=== PATIENT | female | born 2000 | race Two or more races ===

== ENCOUNTER 2020-07-21 16:52 | Emergency (ER) | payer MEDICAID ==
[~2020-07-21] VITALS: Ht 165.1 cm; Wt 59.0 kg
[2020-07-21] MEDS ORDERED: ONDANSETRON 4MG ODT PO ONE (19:00)
[2020-07-21] MEDS ORDERED: IBUPROFEN 600MG TABLET PO ONE (19:00)
[2020-07-21 20:23] LABS: BASOPHILS % 0.6 % (0.0-2.0); EOSINOPHILS % 0.5 % (0.0-5.0); HEMATOCRIT. 41.4 % (36.0-48.0); HEMOGLOBIN. 14.4 g/dL (12.0-16.0); LYMPHOCYTES % 37.3 % (20.0-50.0); MEAN CORPUSCULAR HEMOGLOBIN 30.5 pg (28.0-32.0); MEAN CORPUSCULAR VOLUME 87.5 fL (81.0-99.0); MONOCYTES % 6.1 % (2.0-8.0); NEUTROPHILS % 55.5 % (40.0-76.0); PLATELET 164 x1000/uL (130-400); RED BLOOD CELL COUNT 4.73 mill/uL (4.2-5.4); RED CELL DISTRIBUTION WIDTH 12.3 % (11.6-14.6)
[2020-07-21 20:27] LABS: CLARITY URINE CLOUDY (CLEAR); COLOR URINE YELLOW (YELLOW); KETONES URINE 1+ (NEGATIVE); LEUKOCYTE ESTERASE URINE 2+ (NEGATIVE); NITRITE URINE NEGATIVE (NEGATIVE); OCCULT BLOOD URINE NEGATIVE (NEGATIVE); PROTEIN URINE 1+ (NEGATIVE); SPECIFIC GRAVITY URINE 1.032 (1.005-1.030)
[2020-07-21 20:28] LABS: CHLORIDE 107 mEq/L (98-107)
[2020-07-21 21:00] VITALS: BP 108/75
[2020-07-21 21:04] LABS: HCG SCREEN NEGATIVE
== END 2020-07-21 21:47 | disposition home or self-care (01) ==
LOC: ER 16:52
DX: U07.1 COVID-19 (principal); N39.0 Urinary tract infection, site not specified; M54.5 Low back pain; M79.10 Myalgia, unspecified site
CPT/HCPCS: 36415; 71045; 80053; 81003; 84703; 85025; 87086; 93005; 99285; Q0162